=== PATIENT | male | born 1985 | race Caucasian/White ===

== ENCOUNTER 2023-03-06 20:45 | Emergency (ER) | payer SELFPAY ==
[2023-03-06] MEDS ORDERED: Diphtheria,Pertussis(Acell),Tetanus Vaccine 0.5 ML Syringe IM ONE (21:43)
[2023-03-06] MEDS ORDERED: Lidocaine 1% with EPINEPHrine 1:100,000 50 ML MDV ONE (21:45)
[2023-03-06] MEDS ORDERED: Amoxicillin/Clavulanate K 875-125 MG Tab PO ONE (21:46)
[2023-03-06] MEDS ORDERED: Lidocaine 1% with EPINEPHrine 1:100,000 20 ML MDV INJECT ONE (21:46)
[2023-03-06] MEDS ORDERED: Ibuprofen 600 MG Tab PO ONE (21:46)
[2023-03-06] MEDS: Lidocaine 1% with EPINEPHrine 1:100,000 20 ML MDV INJECT ONE ×2 (21:47→21:51)
== END 2023-03-06 22:11 | disposition home or self-care (01) ==
LOC: MW.ED 20:45
DX: S01.81XA Laceration without foreign body of other part of head, initial encounter (principal); Z23 Encounter for immunization; W54.0XXA Bitten by dog, initial encounter
CPT/HCPCS: 12011; 90471; 90715; 99282; A9270; 99283; J3490

== ENCOUNTER 2023-03-10 03:14 | Emergency (ER) | payer SELFPAY ==
[2023-03-10] MEDS ORDERED: Amoxicillin/Clavulanate K 875-125 MG Tab PO ONE (03:27)
[2023-03-10] MEDS ORDERED: amLODIPine 5 MG Tab PO ONE (03:28)
== END 2023-03-10 03:30 ==
LOC: MW.ED 03:14
DX: Z02.89 Encounter for other administrative examinations (principal)
CPT/HCPCS: 99283; A9270; 99282